=== PATIENT | male | born 1940 | race Caucasian/White ===

== ENCOUNTER 2020-11-21 21:19 | Inpatient (IN) | payer MEDICARE, OTHER ==
[~2020-11-21] VITALS: Ht 172.7 cm; Wt 82.6 kg
[~2020-11-21 21:19] MED LIST: ANTIVERT 12.512.5 MG PO; ASPIR 8181 MG PO; NITROSTAT0.4 MG SL
[2020-11-21 21:50] LABS: HEMOGLOBIN 13.6 gm/dl (14.0-17.5); RED BLOOD COUNT 4.17 M/UL (4.20-5.50); WHITE BLOOD COUNT 15.3 K/UL (4.5-11.0)
[2020-11-21 22:10] LABS: BUN/CREATININE RATIO 18 (0-10)
[2020-11-22] MEDS ORDERED: ZYTIGA250 MG PO (10:52)
[2020-11-22] MEDS ORDERED: SYNTHROID 150150 MCG PO (10:52)
[2020-11-22] MEDS ORDERED: SIMVASTATIN20 MG PO (10:53)
[2020-11-22] MEDS ORDERED: METOPROLOL TART25 MG PO (10:53)
--- NOTE | 2020-11-22 18:30 | NUR ---
DR. BEGUM NOTIFIED AT THIS TIME OF 15 BEAT RUN OF [place]. NO NEW ORDERS.
[2020-11-23 05:34] LABS: HEMOGLOBIN 12.1 gm/dl (14.0-17.5); WHITE BLOOD COUNT 11.7 K/UL (4.5-11.0)
[2020-11-23 05:35] LABS: RED BLOOD COUNT 3.75 M/UL (4.20-5.50)
[2020-11-23 05:56] LABS: BUN/CREATININE RATIO 10 (0-10)
[2020-11-24 04:36] LABS: HEMOGLOBIN 11.8 gm/dl (14.0-17.5); RED BLOOD COUNT 3.66 M/UL (4.20-5.50)
[2020-11-24 04:39] LABS: WHITE BLOOD COUNT 7.9 K/UL (4.5-11.0)
[2020-11-24 04:56] LABS: BUN/CREATININE RATIO 14 (0-10)
[2020-11-25 04:32] LABS: HEMOGLOBIN 11.1 gm/dl (14.0-17.5); RED BLOOD COUNT 3.43 M/UL (4.20-5.50); WHITE BLOOD COUNT 6.7 K/UL (4.5-11.0)
[2020-11-25] MEDS ORDERED: PROTONIX 40 MG40 M1 PO (09:50)
[2020-11-25] MEDS ORDERED: NORVASC5 MG PO (09:53)
[2020-11-25] MEDS ORDERED: AUGMENTIN 875-1 EACH PO (09:53)
== END 2020-11-25 12:40 | disposition home or self-care (01) | DRG 872 ==
LOC: ER1 21:19 → M/S 11-22 00:58 → CDU 11-22 00:58 → M/S 11-22 09:06
PROVIDERS: Emergency Medicine; Internal Medicine; ADMIT Internal Medicine
DX: A41.9 Sepsis, unspecified organism (principal); N39.0 Urinary tract infection, site not specified; I47.2 Ventricular tachycardia; C79.51 Secondary malignant neoplasm of bone; E87.2 Acidosis; I10 Essential (primary) hypertension; R39.15 Urgency of urination; E03.9 Hypothyroidism, unspecified; E87.6 Hypokalemia; N28.9 Disorder of kidney and ureter, unspecified; I44.7 Left bundle-branch block, unspecified; R29.6 Repeated falls; R53.1 Weakness; C61 Malignant neoplasm of prostate; R41.82 Altered mental status, unspecified; Z85.850 Personal history of malignant neoplasm of thyroid; Z85.46 Personal history of malignant neoplasm of prostate; Z85.830 Personal history of malignant neoplasm of bone; Z90.89 Acquired absence of other organs; Z90.49 Acquired absence of other specified parts of digestive tract; Z72.89 Other problems related to lifestyle
CPT/HCPCS: ECHO; 36415; 70450; 70551; 71045; 72125; 72170; 73560; 80048; 80053; 80061; 80202; 80307; 81001; 82140; 82436; 82550; 82553; 82570; 82607; 82746; 83036; 83605; 83690; 83735; 83874; 83880; 84132; 84133; 84156; 84300; 84439; 84443; 84484; 85025; 85027; 85610; 85730; 86140; 87040; 87086; 93005; 93270; 93306; 96374; 96375; 97116-GP-CQ; 97161; 97166; 97530; 99285; G0480; J0360; J0692; J0696; J1650; J1885; J3370; J3480; J7030; J7070; U0002

== ENCOUNTER → 2020-12-21 | Outpatient (CLI) | payer MEDICARE, SELFPAY ==
[~2020-12-21] MED LIST changes: +AUGMENTIN 875-1 EACH PO; +METOPROLOL TART25 MG PO; +NORVASC5 MG PO; +PROTONIX 40 MG40 M1 PO; +SIMVASTATIN20 MG PO; +SYNTHROID 150150 MCG PO; +ZYTIGA250 MG PO
== END ==
LOC: HEART 5 08:57
DX: I44.7 Left bundle-branch block, unspecified (principal); I47.2 Ventricular tachycardia; R94.39 Abnormal result of other cardiovascular function study
CPT/HCPCS: 78452; A9502; J2785

== ENCOUNTER → 2021-01-12 | Outpatient (CLI) | payer MEDICARE, OTHER | LOC: EMI 11:05 | DX: M25.562 Pain in left knee (principal); M11.262 Other chondrocalcinosis, left knee | CPT/HCPCS: 73721 ==

== ENCOUNTER → 2021-01-19 | Outpatient (CLI) | payer MEDICARE, OTHER | LOC: EXRD 13:00 | DX: N20.0 Calculus of kidney (principal) | CPT/HCPCS: 76775 ==

== ENCOUNTER → 2021-07-04 | Outpatient (CLI) | payer MEDICARE | LOC: KOH-I 06-28 13:00 | DX: N50.811 Right testicular pain (principal); N50.89 Other specified disorders of the male genital organs; C61 Malignant neoplasm of prostate; R97.20 Elevated prostate specific antigen [PSA]; C79.51 Secondary malignant neoplasm of bone; N43.3 Hydrocele, unspecified | CPT/HCPCS: 76870 ==

== ENCOUNTER → 2022-01-11 | Outpatient (CLI) | payer MEDICARE | LOC: CT 13:12 | DX: C61 Malignant neoplasm of prostate (principal); R97.20 Elevated prostate specific antigen [PSA]; C79.51 Secondary malignant neoplasm of bone; Z85.46 Personal history of malignant neoplasm of prostate | CPT/HCPCS: 71260; Q9967 ==

== ENCOUNTER → 2022-01-18 | Outpatient (CLI) | payer MEDICARE | LOC: NM 07:28 | DX: R97.20 Elevated prostate specific antigen [PSA] (principal); C61 Malignant neoplasm of prostate; C79.51 Secondary malignant neoplasm of bone; Z85.46 Personal history of malignant neoplasm of prostate | CPT/HCPCS: 78306; A9503 ==